=== PATIENT | male | born 1980 | race Two or more races ===

== ENCOUNTER 2020-07-20 06:49 | Outpatient (CLI) | payer BC | END 2020-07-20 23:59 | disposition home or self-care (01) | LOC: LAB 06:49 | PROVIDERS: ATTEND Orthopaedic Surgery Sports Medicine | DX: Z01.812 Encounter for preprocedural laboratory examination (principal); Z20.828 Contact with and (suspected) exposure to other viral communicable diseases; S83.231D Complex tear of medial meniscus, current injury, right knee, subsequent encounter; X58.XXXD Exposure to other specified factors, subsequent encounter ==

== ENCOUNTER 2020-07-22 08:54 | Day surgery (SDC) | payer BC ==
[2020-07-22] MEDS ORDERED: LIDOCAINE-MPF 2% 5 ML VIAL MC ONE (08:55)
[2020-07-22] MEDS ORDERED: CEFAZOLIN 1 G VIAL MC ONE (08:55)
[2020-07-22] MEDS ORDERED: ONDANSETRON 4 MG/2 ML VIAL IV ONE (08:55)
[2020-07-22] MEDS ORDERED: SEVOFLURANE 250 ML BOTTLE IH ONE (08:55)
[2020-07-22] MEDS ORDERED: PROPOFOL 200 MG/20 ML BOTTLE IV ONE (08:55)
[2020-07-22] MEDS ORDERED: BUPIVACAINE/EPI PF 0.25% 30 ML VIAL ONE (09:13)
[2020-07-22] MEDS ORDERED: MIDAZOLAM HCL 2 MG/2 ML VIAL ONE (09:40)
[2020-07-22] MEDS ORDERED: FENTANYL CITRATE 250 MCG/5 ML AMPUL ONE (09:40)
[2020-07-22] MEDS ORDERED: KETOROLAC TROMETHAMINE 30 MG INJ ONE (09:41)
[2020-07-22 09:45] LABS: *BILIRUBIN,URIN NEGATIVE (NEGATIVE); *BLOOD, URINE 1+ (NEGATIVE); *CLARITY,URINE SLIGHTLY CLOUDY (CLEAR); *COLOR,URINE YELLOW (YELLOW); *KETONES,URINE NEGATIVE (NEGATIVE); *UROBILINOGEN,URINE 0.2 E.U./dl (NORMAL); LEUKOCYTE ESTERASE ,URINE NEGATIVE (NEGATIVE); NITRITE, URINE NEGATIVE (NEGATIVE); PH,URINE 5.5 (5.0-8.0); UGLUCOSE NEGATIVE (NEGATIVE)
[2020-07-22 09:52] LABS: BASOPHILS # (AUTO) 0.2 K/uL (0.0-8.0); BASOPHILS % (AUTO) 3.7 % (0.0-2.0); EOSINOPHILS # (AUTO) 0.1 K/uL (0.0-0.7); EOSINOPHILS % (AUTO) 1.2 % (0.0-7.0); HEMATOCRIT 43.9 % (36.7-47.1); HEMOGLOBIN 14.8 g/dL (12.5-16.3); LYMPHOCYTES # (AUTO) 1.2 K/uL (20.0-40.0); LYMPHOCYTES % (AUTO) 24.3 % (20.5-51.5); MEAN CORPUSCULAR HEMOGLOBIN 30.3 uug (23.8-33.4); MEAN CORPUSCULAR HGB CONC 34 g/dL (32.5-36.3); MEAN CORPUSCULAR VOLUME 89.9 fL (73.0-96.2); MONOCYTES # (AUTO) 0.4 K/uL (2.0-10.0); NEUTROPHILS % (AUTO) 62.8 % (38.5-71.5); PLATELET COUNT (AUTO) 229 K/uL (152-348); RED BLOOD CELL COUNT(AUTO) 4.89 MIL/uL (4.06-5.63); WHITE BLOOD COUNT (AUTO) 4.8 K/uL (3.6-10.2)
[2020-07-22 09:54] LABS: CREATININE 0.9 mg/dL (0.6-1.3); POTASSIUM 3.9 mmol/L (3.5-5.1)
[2020-07-22 10:00] LABS: BILIRUBIN,TOTAL 0.9 mg/dL (0.2-1.0); TOTAL PROTEIN, SERUM 7.5 g/dL (6.4-8.2)
[2020-07-22] MEDS ORDERED: HYDROCODONE/APAP 10-325 MG TABLET ONE (12:10)
[2020-07-23 11:34] LABS: BACTERIA,URINE NONE SEEN /HPF (NONE SEEN); SQUAMOUS EPITHELIAL CELL,UR FEW /HPF (NONE SEEN); URINE AMORPHOUS URATE MANY /HPF; WBC,URINE NONE SEEN /HPF (0-3)
== END 2020-07-22 14:05 | disposition home or self-care (01) ==
LOC: DS 08:54
PROVIDERS: ATTEND Orthopaedic Surgery Sports Medicine
DX: S83.231A Complex tear of medial meniscus, current injury, right knee, initial encounter (principal); M65.88 Other synovitis and tenosynovitis, other site; E11.9 Type 2 diabetes mellitus without complications; Z72.89 Other problems related to lifestyle; Z79.899 Other long term (current) drug therapy; Z79.84 Long term (current) use of oral hypoglycemic drugs; Z98.890 Other specified postprocedural states; X58.XXXA Exposure to other specified factors, initial encounter; Y93.89 Activity, other specified; Y92.89 Other specified places as the place of occurrence of the external cause; Y99.8 Other external cause status
CPT/HCPCS: 29881; 36415; 80053; 81000; 81001; 82962; 85025; 85730; J0690; J1885; J2250; J2405; J3010; J3490 ×2; J7120; A4649; A4663

== ENCOUNTER 2020-07-23 18:52 | Emergency (ER) | payer BC ==
[~2020-07-23] VITALS: Ht 170.2 cm; Wt 108.0 kg
--- NOTE | 2020-07-23 19:18 | NUR ---
XRAY at bedside for imaging
--- NOTE | 2020-07-23 19:18 | NUR ---
Lucas hinojosa in ED - 07/23/20 at 1926 by CARLYN XRAY at bedside for scan
--- NOTE | 2020-07-23 20:16 | NUR ---
Patient discharged to home in stable condition. Written and verbal after care instructions given. Patient verbalizes understanding of instructions. Stressed follow up or return to ER for worsening s/s. Patient is able to ambulate with the use of crutches with a stead gait.
[2020-07-23 20:17] VITALS: BP 126/79
== END 2020-07-23 20:17 | disposition home or self-care (01) ==
LOC: ER 18:52
DX: S89.91XA Unspecified injury of right lower leg, initial encounter (principal); W01.0XXA Fall on same level from slipping, tripping and stumbling without subsequent striking against object, initial encounter; Y93.89 Activity, other specified; Y92.031 Bathroom in apartment as the place of occurrence of the external cause; Z98.890 Other specified postprocedural states; M25.461 Effusion, right knee
CPT/HCPCS: A4663